=== PATIENT | female | born 1975 | race Hispanic/Latino ===

== ENCOUNTER 2019-06-12 20:33 | Emergency (ER) | payer BC ==
[2019-06-12 22:51] VITALS: BP 128/79
[2019-06-12] MEDS ORDERED: ULTRAM50 MG PO (22:54)
== END 2019-06-12 21:40 | disposition home or self-care (01) ==
LOC: ER 20:33
DX: M79.651 Pain in right thigh (principal); M79.661 Pain in right lower leg
CPT/HCPCS: 99282